=== PATIENT | female | born 1995 | race Caucasian/White ===

== ENCOUNTER 2019-03-23 12:37 | Emergency (ER) | payer SELFPAY ==
[~2019-03-23] VITALS: Ht 162.6 cm; Wt 100.2 kg
[2019-03-23 13:03] VITALS: BP 124/55
--- NOTE | 2019-03-23 13:04 | NUR ---
PT TO ER LOBBY. PT ALERT AND AWAKE, NO DISTRESS NOTED. PT PROVIDED 1 CC OF URINE AT THIS TIME
--- NOTE | 2019-03-23 13:38 | NUR ---
pt to bed 8 with steady gait
--- NOTE | 2019-03-23 13:44 | NUR ---
C/O LOWER ABDOMINAL PAIN RADIATING TO MID UPPER ABDOMEN & LOWER BACK, N/V/D X TODAY. PATIENT STATES PAIN OF 710 AT THIS TIME. PATIENT POSITIONED FOR COMFORT; HOB ELEVATED; BEDRAILS UP X1; BED DOWN. YURIDIA LI MADE AWARE OF PT STATUS. Addendum: 03/23/19 at 1349 by [facility] ABD SOFT, NO TENDERNESS.
--- NOTE | 2019-03-23 13:57 | NUR ---
Patient being evaluated by DR WILDER at bedside.
[2019-03-23] MEDS ORDERED: FAMOTIDINE 20 MG/2 ML VIAL IVP ONE (14:00)
[2019-03-23] MEDS ORDERED: LOPERAMIDE 2 MG CAP PO ONE (14:00)
[2019-03-23] MEDS ORDERED: NACL 0.9% 1,000 ML IV ONE (14:00)
[2019-03-23] MEDS ORDERED: ONDANSETRON 4 MG/2 ML VIAL IVP ONE (14:00)
[2019-03-23] MEDS ORDERED: PROMETHAZINE 25 MG/ML VIAL IM ONE (14:00)
[2019-03-23] MEDS ORDERED: NACL 0.9% 1,000 ML IV SCH (14:00)
[2019-03-23 14:48] LABS: BASOPHILS % (AUTO) 0.2 % (0.0-2.0); EOSINOPHILS % (AUTO) 0.1 % (0.0-4.0); HEMATOCRIT 41.7 % (36-48); HEMOGLOBIN 13.8 g/dL (12.0-16.0); LYMPHOCYTES # (AUTO) 0.5 K/uL (2.5-16.5); LYMPHOCYTES % (AUTO) 4.5 % (20.5-51.1); MEAN CORPUSCULAR HEMOGLOBIN 27 pg (27-31); MEAN CORPUSCULAR HGB CONC 33 g/dL (33-37); MEAN CORPUSCULAR VOLUME 82.2 fL (80-94); MONOCYTES # (AUTO) 0.4 K/uL (0.8-1.0); MONOCYTES % (AUTO) 3.1 % (1.7-9.3); NEUTROPHILS # (AUTO) 10.5 K/uL (1.8-7.7); NEUTROPHILS % (AUTO) 92.1 % (42.2-75.2); PLATELET COUNT (AUTO) 395 K/uL (140-450); RED BLOOD CELL COUNT(AUTO) 5.07 MIL/uL (4.20-5.40); RED CELL DISTRIBUTION WIDTH 14.4 % (11.6-13.7); WHITE BLOOD COUNT (AUTO) 11.4 K/uL (4.8-10.8)
[2019-03-23 16:01] LABS: ANION GAP 13.7 (8-16); CARBON DIOXIDE 26.9 mmol/L (21-32); POTASSIUM 4.6 mmol/L (3.5-5.1)
[2019-03-23 16:05] LABS: CREATININE 0.7 mg/dL (0.6-1.3)
[2019-03-23 16:45] VITALS: BP 109/60
--- NOTE | 2019-03-23 16:45 | NUR ---
Patient discharged with v/s stable. Written and verbal after care instructions given and explained FOOD POISENING. Patient alert, oriented and verbalized understanding of instructions. Ambulatory with steady gait. All questions addressed prior to discharge. ID band removed. Patient advised to follow up with PMD. Rx of IMMODIUM given. Patient educated on indication of medication including possible reaction and side effects. Opportunity to ask questions provided and answered. PT GIVEN EXCUSE FOR WORK UNTIL THE 03/26/19 PT VERBALIZED RELIEF FROM NAUSEA. PAIN 07/15
[2019-03-23 16:58] LABS: TOTAL BILIRUBIN 1.3 mg/dL (0.0-1.0)
[2019-03-23 17:09] LABS: APPEARANCE,URINE CLEAR (CLEAR); BILIRUBIN,URINE 1+ (NEGATIVE); BLOOD, URINE NEGATIVE (NEGATIVE); COLOR,URINE YELLOW (YELLOW); LEUKOCYTE ESTERASE ,URINE NEGATIVE (NEGATIVE); NITRITE, URINE NEGATIVE (NEGATIVE); UGLUCOSE NEGATIVE (NEGATIVE)
== END 2019-03-23 16:45 | disposition home or self-care (01) ==
LOC: MED 12:37
DX: A05.9 Bacterial foodborne intoxication, unspecified (principal); E86.0 Dehydration
CPT/HCPCS: 36415; 80053; 81003; 81025; 82150; 83690; 85025; 96361; 96372; 96374; 96375; 99283; J2405; J2550; J3490; J7030; 96365